=== PATIENT | female | born 1965 | race Caucasian/White ===

== ENCOUNTER 2017-09-16 08:30 | Outpatient (CLI) | payer BC | END 2017-09-16 23:59 | disposition home or self-care (01) | LOC: RAD 08:30 | PROVIDERS: ATTEND Internal Medicine | DX: G30.8 Other Alzheimer's disease (principal); F02.80 Dementia in other diseases classified elsewhere, unspecified severity, without behavioral disturbance, psychotic disturbance, mood disturbance, and anxiety; Z87.891 Personal history of nicotine dependence | CPT/HCPCS: 95816 ==